=== PATIENT | male | born 1990 | race African-American/Black ===

== ENCOUNTER 2020-04-17 14:09 | Emergency (ER) | payer SELFPAY ==
[~2020-04-17] VITALS: Ht 180.3 cm; Wt 76.0 kg
[2020-04-17 14:15] VITALS: BP 140/87
[2020-04-17] MEDS ORDERED: ACET-704 PO (14:55)
[2020-04-17] MEDS ORDERED: PENI500T PO (14:55)
--- NOTE | 2020-04-17 14:55 | PHYS DOC ---
Past Medical History Past Medical History: No Pertinent History Past Surgical History: No Surgical History Smoking Status: Current Every Day Smoker Alcohol Use: None Drug Use: None General Adult EDM: Chief Complaint: DENTAL PROBLEM HPI: HPI: Patient is a 29 year old male presenting to the ED with a chief complaint of dental pain. Patient states that the pain has been present for the last 2 to 3 days. Patient states that he does not have a dentist that he sees. Patient denies fever, chills, nausea, vomiting, shortness of breath, chest pain. Review of Systems: Review of Systems: Constitutional: Denies fever or chills. [] Eyes: Denies change in visual acuity. [] HENT: Denies nasal congestion or sore throat. Patient does complain of dental pain. Respiratory: Denies cough or shortness of breath. [] Cardiovascular: Denies chest pain or edema. [] GI: Denies abdominal pain, nausea, vomiting Neurologic: Denies headache, focal weakness or sensory changes. [] Heart Score: Risk Factors: Risk Factors: DM, Current or recent (<one month) smoker, HTN, HLP, family history of CAD, obesity. Risk Scores: Score 0 - 3: 2.5% MACE over next 6 weeks - Discharge Home Score 4 - 6: 20.3% MACE over next 6 weeks - Admit for Clinical Observation Score 7 - 10: 72.7% MACE over next 6 weeks - Early Invasive Strategies Allergies: Allergies: Allergies Coded Allergies Type Severity Reaction Last Updated Verified No Known Drug Allergies 08/01/16 No Physical Exam: PE: Constitutional: Well developed, well nourished, no acute distress, non-toxic appearance. [] HENT: Normocephalic, atraumatic. Patient has dental caries in the right lower jaw. No dental abscess seen. Eyes: EOMI Neck: Normal range of motion, Supple Resp: No resp distress Extremities: No tenderness, ROM intact Neurologic: Alert and oriented X 3 Psychologic: Affect normal, judgement normal, mood normal. [] Current Patient Data: Vital Signs: Vital Signs Date Time Temp Pulse Resp B/P (MAP) Pulse Ox O2 Delivery O2 Flow Rate FiO2 /30/20 14:15 98.5 78 18 140/87 (104) 100 Room Air 98.5 EKG: EKG: [] Radiology/Procedures: Radiology/Procedures: [] Course & Med Decision Making: Course & Med Decision Making Ordered all antibiotics and pain medication Patient follow-up with dentist as soon as possible. Discussed plan of care with patient. Patient is instructed to follow up with PCP in one to 2 days. Appropriate discharge instructions given to patient to return to the ED or to seek immediate medical evaluation. Patient is instructed to return to the ED if symptoms worsen or if any concerns. Dragon Disclaimer: Dragon Disclaimer: This electronic medical record was generated, in whole or in part, using a voice recognition dictation system. Departure Departure Impression: Primary Impression: Dental caries Disposition: HOME, SELF-CARE Condition: STABLE Referrals: NO PCP (PCP) Patient Instructions: Dental Caries Additional Instructions: Please return to ED if any concerns or if symptoms worsen. Please follow up with dentist. Scripts Acetaminophen With Codeine (TYLENOL WITH CODEINE #3 TABLET) 1 Each Tablet 1 TAB PO PRN Q4-6HRS PRN for pain MDD 6 Tablet(s) for 5 Days, #20 TAB 0 Refills Prov: SELWYN GUERRA E DO 04/17/20 Penicillin V Potassium (PENICILLIN V POTASSIUM) 500 Mg Tablet 1 TAB PO QID, #40 TAB Prov: GOLWALI ELIZABETHLI E DO 04/17/20 SELWYN GUERRA E DO April 17, 2020 14:55
== END 2020-04-17 15:05 | disposition home or self-care (01) ==
LOC: ER 14:09
DX: K02.9 Dental caries, unspecified (principal); K08.89 Other specified disorders of teeth and supporting structures; F17.200 Nicotine dependence, unspecified, uncomplicated
CPT/HCPCS: 99283